=== PATIENT | female | born 1940 | race Caucasian/White ===

== ENCOUNTER 2017-02-02 12:35 | Day surgery (SDC) | payer MEDICARE ==
[~2017-02-02] VITALS: Ht 162.6 cm; Wt 62.2 kg
[~2017-02-02 12:35] MED LIST: ASPIRIN325 MG PO; CARDIZEM SR120 MG PO; COMBIVENT RESPIM4 GM INH; DUONEB 3.0-0.5 M3 ML INH; IRON240 MG PO; KLONOPIN1 MG PO; MEDROL4 MG PO; PAXIL20 MG PO; PROVENTIL2.5 MG/3 M INH; REMERON15 MG PO; SYMBICORT 160-4.6 GM INH; ZITHROMAX250 MG PO; ZOCOR40 MG PO
== END 2017-02-02 17:15 | disposition short-term general hospital (02) ==
LOC: SURGOP 12:35
PROC: 08RK3JZ Replacement of Left Lens with Synthetic Substitute, Percutaneous Approach (ICD-10-PCS; principal; 2017-02-02)
DX: Z96.1 Presence of intraocular lens (principal); H26.9 Unspecified cataract; I11.0 Hypertensive heart disease with heart failure; I50.9 Heart failure, unspecified; J44.9 Chronic obstructive pulmonary disease, unspecified; E78.5 Hyperlipidemia, unspecified; F41.9 Anxiety disorder, unspecified; Z87.891 Personal history of nicotine dependence; Z79.51 Long term (current) use of inhaled steroids; Z79.82 Long term (current) use of aspirin; Z79.899 Other long term (current) drug therapy
CPT/HCPCS: J0171; J3473; V2632

== ENCOUNTER 2017-03-02 10:15 | Day surgery (SDC) | payer MEDICARE | END 2017-03-02 15:30 | disposition short-term general hospital (02) | LOC: SURGOP 10:15 | PROC: 08RJ3JZ Replacement of Right Lens with Synthetic Substitute, Percutaneous Approach (ICD-10-PCS; principal; 2017-03-02) | DX: Z96.1 Presence of intraocular lens (principal); H26.9 Unspecified cataract; I11.0 Hypertensive heart disease with heart failure; I50.9 Heart failure, unspecified; E78.5 Hyperlipidemia, unspecified; F41.9 Anxiety disorder, unspecified; J45.909 Unspecified asthma, uncomplicated; J44.9 Chronic obstructive pulmonary disease, unspecified; Z87.891 Personal history of nicotine dependence; Z79.82 Long term (current) use of aspirin; Z79.899 Other long term (current) drug therapy | CPT/HCPCS: J0171; J3473; V2632 ==